=== PATIENT | female | born 2005 | race Caucasian/White ===

== ENCOUNTER 2023-01-25 15:58 | Emergency (ER) | payer BC, SELFPAY ==
--- NOTE | ~2023-01-25 | XR_ITS ---
EXAMINATION: XR chest 2V DATE: 01/25/2023 18:01 INDICATION: Chest pain TECHNIQUE: PA and lateral views of the chest are obtained. COMPARISON: None available FINDINGS: The lungs are free of acute opacities. No pleural effusion or pneumothorax. The cardiomedia stinal silhouette is normal. The visualized bones and soft tissues are unremarkable. IMPRESSION: 1. No acute cardiopulmonary abnormality. Reviewed, dictated and finalized at location F.
[2023-01-25 16:04] VITALS: BP 114/75; PULSE 83; RESP 18; TEMP 36.7; O2SAT 100
[2023-01-25 16:08] VITALS: O2SAT 100
--- NOTE | 2023-01-25 16:43 | ED.GENADULT ---
HPI - General Adult General Chief complaint: Unspecified Stated complaint: Left side lung pain Time Seen by Provider: 01/25/23 16:42 History of Present Illness HPI narrative: Patient is a 17-year-old female, previously healthy here with left-sided chest pain and shortness of breath. She states yesterday she began having sharp pain with respirations on the left side which seem to limit how deep breath she can take. She notes that the pain was so severe that it brought her to tears. It comes in waves and tends to radiate into her left shoulder and left neck. She denies any prior cardiac history. She denies prior history of PE or DVT, is not on control. No recent long travel. No recent trauma. No known family history of cardiac disease that she is aware of. No cough, congestion, fever, chills. No known sick contacts. Related Data Allergies Allergy/AdvReac Type Severity Reaction Status Date / Time avocado Allergy Swelling Verified 01/25/23 16:10 of Lip/Tongue/Throat pollen extracts Allergy Unknown Verified 01/25/23 16:10 Review of Systems Review of Systems: CONSTITUTIONAL: Denies fever, chills, or sweats. ENT: Denies rhinorrhea, congestion CARDIOVASCULAR: chest pain RESPIRATORY: dyspnea, no cough GASTROINTESTINAL: Denies abdominal pain, nausea, vomiting MUSCULOSKELETAL: Left shoulder pain Exam Narrative: GENERAL: Well-appearing, well-nourished, and in no acute distress. HEAD: Normocephalic, atraumatic. EYES: PERRLA and EOMI. ENT: Nares clear, no rhinorrhea or epistaxis. Mucous membranes moist. NECK: Supple. CHEST: Clear to auscultation. No respiratory distress. HEART: Regular rate and rhythm. No murmur heard. Normal peripheral pulses. No reproducible chest tenderness. ABDOMEN: Soft, nontender, nondistended, normal active bowel sounds. EXTREMITIES: Normal range of motion. No edema. No calf tenderness. SKIN: Warm, dry, no rash. NEURO: No focal deficits. Alert and oriented x3. PSYCH: Normal mood and affect. Course Course Emergency Course: Chart review performed. No prior visits, no documented history. Patient has normal triage vitals. Triage note states patient here for left shoulder and lung pains. Patient seen evaluated, in no acute distress. Given history and exam concern for possible musculoskeletal pain, pneumonia, less likely PE. Will do D-dimer, cardiac workup. Anticipate likely discharge. test ordered and Tylenol ordered for pain. Lab work reviewed, CBC within normal limits, D-dimer negative, electrolytes grossly within normal limits, troponin negative. Chest x-ray negative. We will re-evaluate the patient for discharge. Patient re-evaluated, continues to feel well. Discussed negative workup. The patient to follow closely with her primary care doctor. Can return to the ER should her symptoms worsen. Vital Signs Vital signs: Vital Signs Temperature 98.1 F 01/25/23 16:04 Pulse Rate 83 01/25/23 16:04 Respiratory Rate 18 01/25/23 16:04 Blood Pressure 114/75 01/25/23 16:04 Pulse Oximetry 100 01/25/23 16:04 Oxygen Delivery Room Air 01/25/23 16:04 Temperature 98.1 F 01/25/23 16:04 Pulse Rate 64 01/25/23 18:53 Respiratory Rate 14 01/25/23 18:53 Blood Pressure 120/65 01/25/23 18:53 Pulse Oximetry 100 01/25/23 18:53 Oxygen Delivery Room Air 01/25/23 16:08 Medical Decision Making Vital Signs Vital Signs: Vital Signs Temperature 98.1 F 01/25/23 16:04 Pulse Rate 83 01/25/23 16:04 Respiratory Rate 18 01/25/23 16:04 Blood Pressure 114/75 01/25/23 16:04 Pulse Oximetry 100 01/25/23 16:04 Oxygen Delivery Room Air 01/25/23 16:04 Temperature 98.1 F 01/25/23 16:04 Pulse Rate 64 01/25/23 18:53 Respiratory Rate 14 01/25/23 18:53 Blood Pressure 120/65 01/25/23 18:53 Pulse Oximetry 100 01/25/23 18:53 Oxygen Delivery Room Air 01/25/23 16:08 Lab Data 01/25/23 17:20
[2023-01-25] MEDS: ACETAMINOPHEN 325 MG TABLET 650 MG PO (17:14)
[2023-01-25 17:29] LABS: Basophils Absolute Auto 0.1 K/mm3 (0.0-0.1); Basophils Percent Auto 0.8 % (0.2-1.2); Eosinophils Percent Auto 0.6 % (0-4.4); Hemoglobin 13.4 g/dL (12.0-15.0); Immature Granulocyte Absolute 0.02 K/mm3 (0.00-0.031); Immature Granulocyte Percent A 0.3 % (0-0.5); Lymphocytes Absolute Auto 1.59 K/mm3 (0.9-3.2); Lymphocytes Percent Auto 25.6 % (18.3-44.2); Mean Corpuscular HGB Conc 32.7 g/dl (32-36); Mean Corpuscular Hemoglobin 28.3 pg (26-34); Mean Corpuscular Volume 86.5 fl (80-100); Mean Platelet Volume 10.5 fl (7.4-10.4); Monocytes Absolute Auto 0.7 K/mm3 (0.1-0.6); Monocytes Percent Auto 10.5 % (2.6-8.5); Neutrophils Absolute Auto 3.9 K/mm3 (1.3-6.7); Neutrophils Percent Auto 62.2 % (45.5-73.1); Platelet Count Result 312 k/mm3 (150-375); Red Blood Count 4.74 M/mm3 (4.2-5.4); Red Cell Distribution Width 13.8 % (11.5-14.5); White Blood Count 6.2 K/mm3 (4.5-10.0)
[2023-01-25 17:38] LABS: Alanine Aminotransferase 16 U/L (6-35); Albumin Level 4.8 g/dL (3.7-5.6); Alkaline Phosphatase 55 U/L (45-116); Anion Gap 12 mmol/L (8-16); Aspartate Amino Transferase 36 U/L (14-36); Bilirubin,Total 0.5 mg/dL (0.2-1.3); Blood Urea Nitrogen 7 mg/dL (8-21); Calcium 9.4 mg/dL (8.9-10.7); Carbon Dioxide 23 mmol/L (22-30); Chloride 102 mmol/L (98-107); Estimated CRCL calculation 112 ml/min; Estimated Glomerular Filt Rate > 60; Glucose 86 mg/dL (65-110); Potassium 4.3 mmol/L (3.4-5.0); Sodium 137 mmol/L (134-143)
[2023-01-25 17:49] LABS: Troponin I < 0.012 ng/mL (0.000-0.034)
[2023-01-25 18:53] VITALS: BP 120/65; PULSE 64; RESP 14; O2SAT 100
== END 2023-01-25 18:59 | disposition home or self-care (01) ==
PROVIDERS: Emergency Provider Student in an Organized Health Care Education/Training Program; PCP Pediatrics
DX: R07.9 Chest pain, unspecified (principal)
CPT/HCPCS: 36415; 71046; 80053; 81025; 84484; 85025; 85380; 99284; A9270

== ENCOUNTER 2023-02-01 14:38 | Outpatient (CLI) | payer BC, SELFPAY ==
[2023-02-06 07:15] LABS: Hematocrit 40.6 % (35.0-45.0); Hemoglobin 13.2 g/dL (11.7-15.5); MCH 28.6 pg (27.0-33.0); MCV 87.9 fL (80.0-100.0); RDW 13.8 % (11.0-15.0); Red Blood Cell Count 4.62 Mill/uL (3.80-5.10)
== END 2023-02-01 14:39 | disposition home or self-care (01) ==
LOC: ANHLAB 14:40
PROVIDERS: PCP Pediatrics; Visit Provider Pediatrics
DX: Z13.0 Encounter for screening for diseases of the blood and blood-forming organs and certain disorders involving the immune mechanism (principal)
CPT/HCPCS: 36415; 83021

== ENCOUNTER 2024-01-23 15:11 | Emergency (ER) | payer BC, SELFPAY ==
[2024-01-23 15:22] VITALS: BP 125/73; PULSE 108; RESP 16; TEMP 36.8; O2SAT 100
--- NOTE | 2024-01-23 15:23 | ED.GENADULT ---
HPI - General Adult General Chief complaint: Urogenital-Female Stated complaint: UTI SYMPTOMS Time Seen by Provider: 01/23/24 15:23 Source: patient, RN notes reviewed and old records reviewed Mode of arrival: ambulatory Limitations: no limitations History of Present Illness HPI narrative: 18-year-old female to [facility] for complaint of painful urination, frequency, incontinence for 5 days. Patient reports hematuria past 2 days. Patient denies nausea, vomiting, bowel changes, abdominal pain, back pain, fever, pertinent medical history. Patient has not attempted to treat at home. Patient able to tolerate fluids by mouth. Respirations even and nonlabored. Patient in no acute distress. Related Data Home Medications Medication Instructions Recorded Confirmed aripiprazole 10 mg tablet 10 mg PO DAILY 01/23/24 01/23/24 gabapentin 100 mg capsule 100 mg PO TID PRN Anxiety 01/23/24 01/23/24 lamotrigine 100 mg tablet 100 mg PO DAILY 01/23/24 01/23/24 Allergies Allergy/AdvReac Type Severity Reaction Status Date / Time avocado Allergy Swelling Verified 01/23/24 15:27 of Lip/Tongue/Throat pollen extracts Allergy Unknown Verified 01/23/24 15:27 Review of Systems Review of Systems: All systems reviewed & are unremarkable except as noted in HPI and below Constitutional: Constitutional: Reports no additional constitutional complaints Eyes: Eyes: Reports no additional eye complaints ENT: Reports system reviewed and no additional complaints, except as documented Cardiovascular: Cardiovascular: Reports no additional cardiovascular complaints, Denies chest pain and Denies dyspnea Respiratory: Respiratory: Reports no additional respiratory complaints, Denies cough and Denies dyspnea Musculoskeletal: Musculoskeletal: Reports no additional musculoskeletal complaints Neurologic: Reports system reviewed and no additional complaints, except as documented Psychiatric: Psychiatric: Reports no additional psychiatric complaints PMFSH Comments At the time of my signature, I reviewed and agree with the nursing past medical, surgical, social, and family history. There is no relevant family history pertinent to the patient complaint. Exam Const: General: cooperative, healthy appearing, comfortable, no acute distress, alert and well nourished Nutritional Appearance: well nourished Orientation/consciousness: patient oriented x3 Limitations: no limitations HENMT: Head: normal to inspection Ears: external ears normal Face/Nose/Sinus: Normal external nose present, Normal nares present, normal facial exam, No erythema and No edema Face and sinus: normal facial exam, no erythema and no edema Mouth: Yes Normal oral and palatal mucosa present Eyes: General: appearance normal, both eyes and all related structures Neck: Neck: normal visual inspection, full ROM and no meningeal signs Lymphatic: no lymphadenopathy noted and no lymphedema noted Chest: Chest palpation & inspection: normal inspection of the chest Resp: Effort & Inspection: normal respiratory effort and able to speak in complete sentences Auscultation: clear to auscultation bilaterally Cardio: Jugular venous distension: no JVD Rate: regular rate Rhythm: regular rhythm Back/Spine/Pelvis: Cervical Spine: cervical ROM normal Skin: General skin exam: normal color, no rashes or lesions noted and turgor normal Neuro: General: patient oriented x3, gait normal, moves all extremities and no meningeal signs Speech: normal speech Gait exam (Neuro): Normal gait present Extrem: General: normal to inspection, full ROM and capillary refill normal Psych: Appearance: grossly normal and well kempt Course Course Emergency Course: Some parts of this dictation were generated by voice recognition software and may contain typographical and/or grammatical inaccuracies. Level of Care: Express Care Visit Vital Signs Vital signs: Vital Signs Temperature 36.8 C 01/22
[2024-01-23 15:30] LABS: BEDSIDEPREGUCG Negative
[2024-01-23 15:31] LABS: EDUAAPPEAR Cloudy; EDUABILI Negative; EDUABLOOD 3+; EDUACOLOR1 Yellow; EDUAGLUCOSE Negative; EDUAKETONE Negative; EDUALEUKO 2+; EDUANITRATE Negative; EDUAPH 6.5; EDUAPROTEIN Negative; EDUASPGRAVITY 1.015; EDUAUROBILI 0.2
== END 2024-01-23 15:56 | disposition home or self-care (01) ==
PROVIDERS: Emergency Provider Nurse Practitioner Family
DX: N39.0 Urinary tract infection, site not specified (principal); B96.20 Unspecified Escherichia coli [E. coli] as the cause of diseases classified elsewhere; F31.9 Bipolar disorder, unspecified
CPT/HCPCS: 81003; 81025; 87077; 87086; 87088; 87186; 99213; G0463

== ENCOUNTER 2025-03-01 11:51 | Emergency (ER) | payer BC, SELFPAY ==
--- NOTE | 2025-03-01 11:52 | ED_ITS ---
HPI - URI/Sore Throat General Chief Complaint: Upper Respiratory Infection Stated Complaint: URI symptoms Time Seen by Provider: 03/01/25 12:00 Source: patient, RN notes reviewed and old records reviewed Mode of arrival: ambulatory Limitations: no limitations History of Present Illness HPI Narrative: 19-year-old female presents to the [facility] with complaints of sore throat, runny nose, headache and a dry cough. Denies fevers. Did take 1 Mucinex last night. Symptoms have been going on since either Saturday or Saturday about 3 days. Related Data Home Medications ?Medication ?Instructions ?Recorded ?Confirmed ?Last Taken ?Type No Home Medications 03/01/25 03/01/25 U nknown History Allergies Allergy/AdvReac Type Severity Reaction Status Date / Time avocado Allergy Swelling Verified 03/01/25 11:58 of Lip/Tongue/Throat pollen extracts Allergy Unknown Verified 03/01/25 11:58 Review of Systems Review of Systems: All systems reviewed & are unremarkable except as noted in HPI and below Constitutional: Constitutional: Reports as per HPI, Reports body ache(s) and Reports headache(s) ENT: Reports as per HPI and Reports sore throat Cardiovascular: Cardiovascular: Reports no additional cardiovascular complaints, Denies chest pain and Denies dyspnea Respiratory: Respiratory: Reports as per HPI, Denies chest congestion, Reports cough and Denies dyspnea Musculoskeletal: Musculoskeletal: Reports no additional musculoskeletal complaints Integumentary/Breasts: Skin/Breast: Reports system reviewed and no additional complaints, except as docu PMFSH Comments At the time of my signature, I reviewed and agree with the nursing past medical, surgical, social, and family history. There is no relevant family history pertinent to the patient complaint. Exam Const: General: cooperative, healthy appearing, comfortable, no acute distress, well developed, alert and well nourished Nutritional Appearance: well nourished Orientation/consciousness: patient oriented x3 Limitations: no limitations HENMT: Head: normal to inspection Ears: hearing grossly normal bilaterally, external ears normal, TM's normal bilaterally, EAC's normal, mastoids normal and no periauricular adenopathy Mouth: Yes Normal oral and palatal mucosa present, Yes lip normal, Yes tongue normal and Yes moist mucous membranes Throat: posterior oropharynx normal, uvula midline and no uvular edema Eyes: General: appearance normal, both eyes and all related structures Alignment and Position: alignment normal Neck: Neck: normal visual inspection, full ROM, no lymphadenopathy and no meningeal signs Chest: Chest palpation & inspection: normal inspection of the chest Resp: Effort & Inspection: normal respiratory effort and able to speak in complete sentences Auscultation: clear to auscultation bilaterally, no crackles, no rales, no rhonchi and no wheezes Cardio: Rate: regular rate Skin: General skin exam: normal color and no rashes or lesions noted Neuro: General: patient oriented x3, gait normal, moves all extremities and no meningeal signs Cognition (Neuro): normal cognition Speech: normal speech Gait exam (Neuro): Normal gait present Extrem: General: normal to inspection, full ROM, capillary refill normal and normal gait Psych: Appearance: grossly normal and well kempt Mental Status: mental status grossly normal Speech and movement: Normal speech and movement present and Clear speech present Affect: normal affect Attitude: cooperative Course Course Level of Care: Express Care Visit Vital Signs Vital signs: Vital Signs Temperature 99.1 F 03/01/25 11:57 Pulse Rate 95 03/01/25 11:57 Respiratory Rate 16 03/01/25 11:57 Blood Pressure 132/85 03/01/25 11:57 Pulse Oximetry 99 03/01/25 11:57 Oxygen Delivery Room Air 03/01/25 11:57 Temperature 99.1 F 03/01/25 11:57 Pulse Rate 95 03/01/25 11:57 Respiratory Rate 16 03/01/25 11:57 Blood Pressure 132/85 03/01/25 11:57 Pulse Oximetry 99 03/01/25 11:57 Oxygen Delivery Room Air 03/01/25 11:57 Reviewed MDM - URI/Sore Throat MDM Narrative Medical decision making narrative: Patient sitting in exam. Patient is nontoxic vitals stable. Patient presents 3 day history of URI symptoms. Mostly complains of a sore throat. Strep negative, will culture Patient appropriate for outpatient treatment of viral URI with close follow-up Discharge instructions reviewed with patient, as well as provided in writing per nursing staff. The instructions also include specific and strict return/GO TO THE ER as well as f/u information. All questions have been answered, and the patient deny any further questions with discharge and discharge plan. Some parts of this dictation were generated by voice recognition software and may contain typographical and/or grammatical inaccuracies. Differential Diagnosis Differential diagnosis: Likely upper respiratory infection, otitis media, sinusitis, viral infection, bronchitis, influenza and pharyngitis Lab Data Labs: Lab Results 03/01/25 Range/Units 12:10 POC Grp A Strep Screen Negative (Negative) Reviewed Critical Care Time Critical Care Time Critical Care Time: No Discharge Plan Discharge Clinical Impression: Upper respiratory infection Patient Disposition: Home Condition: Stable Instructions: Antibiotic Form, Upper Respiratory Infection (ED), Viral Syndrome (ED) Additional Instructions: Your rapid strep swab was negative today at [facility]. A throat culture will be sent to the laboratory for further testing. If the test is positive, you will receive a phone call within 48 hours and an appropriate antibiotic will be initiated at that time. Your symptoms are likely due to a viral illness, which is not treated with antibiotics. Typically viral infections last 7-10 days, can linger for couple of weeks. It is very important to treat your symptoms. Drink plenty of water, Gatorade, Pedialyte, ice pops or Jell-O. -Alternate Tylenol and Motrin per package directions for fever or pain. You can alternate every 4 hours -Antihistamine medication such as Zyrtec/Claritin/Winifred during the day can help improve symptoms. -doing daily nasal irrigations can help relieve pressure your sinuses. Things like a Neti pot -Use Flonase twice a day for 5 days then daily to help reduce the inflammation and dry up your sinuses. -You can also use Mucinex. Be sure to drink plenty of water with this medication at least 8 ounces with every dose and it is important to drink 8 to 10 glasses of water per day. Water is a natural decongestant -Eat and drink things that are easy to swallow, like tea or soup, or popsicles. -Oral rinses such as: Salt water gargles and/or may use topical anesthetic (eg. Chloraseptic spray) or lozenges to relieve dryness or throat pain). -Frequent hand washing or hand asbestos abatement technician is one of the best ways to prevent spread of infection. -Using a vaporizer or humidifier at night will also help thin secretions and help with coughing up phlegm. -Follow up with primary care provider in 7-10 days if condition is not improving - For new or worsening symptoms go directly to the nearest ER Patient Language: Welsh Prescriptions: No Action No Home Medications Follow-up/Referrals: PHYSICIAN,SALESPERSON WIGS [Primary Care Provider, Internal Medicine] Stand Alone Forms: Work/School Release IP Time of Disposition: 12:18
[2025-03-01 11:57] VITALS: BP 132/85; PULSE 95; RESP 16; TEMP 37.3; O2SAT 99
[2025-03-01 12:21] LABS: EDSTREPNEGPOS1 Negative (Negative)
== END 2025-03-01 12:28 | disposition home or self-care (01) ==
PROVIDERS: Emergency Provider Nurse Practitioner
DX: J06.9 Acute upper respiratory infection, unspecified (principal)
CPT/HCPCS: 87081; 87880; 99213; G0463